=== PATIENT | male | born 2000 | race Caucasian/White ===

== ENCOUNTER 2019-10-15 11:23 | Emergency (ER) | payer BC ==
--- NOTE | 2019-10-15 11:32 | ER Document Report ---
HPI - HPI Patient complains to provider of: left foot pain Time Seen by Provider: 10/15/19 11:27 Onset: Other Onset/Duration: Persistent Quality of pain: Achy Context: 19-year-old male presents emergency department with complaints of left foot pain. Reports he was walking down the steps on [address] when he tripped and hyper flexed his foot. He reports he has been walking on it since that time. 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 He reports pain and swelling. Denies past medical history of injury to the foot. No other complaints such as fever vomiting diarrhea. Associated Symptoms: None Exacerbated by: Walking Relieved by: Denies Similar symptoms previously: No Recently seen / treated by doctor: No Past Medical History - General Information source: Patient - Social History Smoking Status: Unknown if Ever Smoked Occupation: [employer] Family History: None Patient has suicidal ideation: No Patient has homicidal ideation: No - Medical History Medical History: Negative Surgical Hx: Negative Vertical Provider Document - CONSTITUTIONAL Agree With Documented VS: Yes Exam Limitations: No Limitations General Appearance: WD/WN, No Apparent Distress - HEENT HEENT: Atraumatic, Normocephalic - NECK Neck: Supple - RESPIRATORY Respiratory: No Respiratory Distress - MUSCULOSKELETAL/EXTREMETIES Musculoskeletal/Extremeties: MAEW, FROM, Tender - Left foot digits tender to touch with ecchymosis dorsally slight swelling good pedal pulse cap refill less than 2 seconds - NEURO Level of Consciousness: Awake, Alert, Appropriate Motor/Sensory: No Motor Deficit - DERM Integumentary: Warm, Dry Course - Re-evaluation Re-evalutation: 10/15/19 12:14 Fracture of the proximal fifth metatarsal minimally displaced noted per x-ray. Patient was instructed on this instructed on splint crutches importance of follow-up with orthopedic. He verbalized understanding to all instructions. Foot X-Ray 10/15/19 11:30 IMPRESSION: Minimally displaced tuberosity fracture of the proximal 5th metatarsal. - Diagnostic Test Radiology reviewed: Image reviewed, Reports reviewed Procedures - Immobilization Left Foot Pre-Proc Neuro Vasc Exam: Normal Immobilizer type: Posterior ankle Performed by: PCT Post-Proc Neuro Vasc Exam: Unchanged from pre-exam Alignment checked and good: Yes Discharge - Discharge Clinical Impression: Left foot pain Condition: Stable Disposition: HOME, SELF-CARE Instructions: Use of Crutches ([facility]), Foot Fracture ([facility]), Ibuprofen (General) ([facility]), Ice & Elevation ([facility]), Splint Precautions ([facility]) Additional Instructions: *You have been evaluated for foot injury, fracture of the fifth metatarsal *Maintain the splint, use your crutches *Rest/Ice/Elevate *Follow up with orthopedics within 1 week *Take medication as prescribed *Return to ED for worsening condition, changes, needs Monitor your blood pressure. Your blood pressure was elevated today. This may be because you were anxious, in pain or because you need medication. It is important to follow up with your primary care provider for full evaluation. Prescriptions: Ibuprofen [Motrin 800 mg Tablet] 800 mg PO TID #15 tablet Forms: Elevated Blood Pressure, Return to Work Referrals: RENZO HEWITT JR, DO [ACTIVE PROVISIONAL STAFF] - Follow up as needed PREMA RODRIGUEZ MD [ACTIVE PROVISIONAL STAFF] - Follow up as needed [facility] [Provider Group] - Follow up as needed
--- NOTE | 2019-10-15 12:12 | RADIOLOGY REPORT (SQ) ---
EXAM DESCRIPTION: FOOT LEFT COMPLETE COMPLETED DATE/TIME: 10/15/2019 11:54 am REASON FOR STUDY: pain injury COMPARISON: None. EXAM PARAMETERS: NUMBER OF VIEWS: Three views. TECHNIQUE: AP, lateral and oblique radiographic images acquired of the left foot. LIMITATIONS: None. FINDINGS: MINERALIZATION: Normal. BONES: Minimally displaced tuberosity fracture of the proximal 5th metatarsal. JOINTS: No effusion. SOFT TISSUES: Lateral soft tissue swelling. No radiopaque foreign body. OTHER: No other significant finding. IMPRESSION: Minimally displaced tuberosity fracture of the proximal 5th metatarsal. TECHNICAL DOCUMENTATION: JOB ID: [id number] [id number] 2010 [employer]- All Rights Reserved Reading location - IP/workstation name: [email or web address]
[2019-10-15 13:24] VITALS: BP 138/81
== END 2019-10-15 13:35 | disposition home or self-care (01) ==
LOC: ER 11:23
DX: M79.672 Pain in left foot (principal); W18.40XA Slipping, tripping and stumbling without falling, unspecified, initial encounter
CPT/HCPCS: 99283

== ENCOUNTER 2020-10-31 23:50 | Emergency (ER) | payer SELFPAY ==
[2020-11-01] MEDS ORDERED: ACETAMINOPHEN 325 MG TABLET PO ONE (00:34)
[2020-11-01] MEDS ORDERED: DIPH/PERTUSS(ACELL)/TETANUS VAC/PF 0.5 ML SYR (>=10YO) IM ONE (00:35)
[2020-11-01] MEDS ORDERED: LIDOCAINE 1%/EPINEPHRINE INJ 20 ML VIAL INJ ONE (00:35)
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
--- NOTE | 2020-11-01 04:08 | RADIOLOGY REPORT (SQ) ---
CT cervical spine without contrast on 11/01/2020 at 2:45 AM CLINICAL INDICATION: Trauma, per protocol for mechanism of injury TECHNIQUE: Multiple axial images are obtained throughout the cervical spine without the administration of contrast. Sagittal and coronal reformatted images are also performed and reviewed. This exam was performed according to our departmental dose-optimization program, which includes automated exposure control, adjustment of the mA and/or kV according to patient size and/or use of iterative reconstruction technique. Total DLP is 499.75 mGy*cm. COMPARISON: None FINDINGS: Reformatted images reveal normal alignment of the cervical spine. There are no acute fractures. No definite disc herniation is noted. There is no prevertebral soft tissue swelling. IMPRESSION: No acute fracture or malalignment of the cervical spine.
--- NOTE | 2020-11-01 04:09 | RADIOLOGY REPORT (SQ) ---
CT head without contrast on 11/01/2020 at 2:43 AM CLINICAL INDICATION: Trauma, per protocol for mechanism of injury TECHNIQUE: Multiple axial images are obtained throughout the head without the administration of contrast. This exam was performed according to our departmental dose-optimization program, which includes automated exposure control, adjustment of the mA and/or kV according to patient size and/or use of iterative reconstruction technique. Total DLP is 1070.38 mGy*cm. COMPARISON: None FINDINGS: There is no hydrocephalus. There is no CT evidence of acute infarct. There is no hemorrhage. There are no abnormal extra-axial fluid collections. There is no mass, mass effect or midline shift. No bony abnormality is noted. IMPRESSION: No acute intracranial abnormality.
--- NOTE | 2020-11-01 04:11 | RADIOLOGY REPORT (SQ) ---
CT face and sinuses without contrast on 11/01/2020 at 2:48 AM CLINICAL INDICATION: Trauma, per protocol for mechanism of injury TECHNIQUE: Multiple axial images are obtained throughout the face/sinuses without the administration of contrast. Sagittal and coronal reformatted images are also performed and reviewed. This exam was performed according to our departmental dose-optimization program, which includes automated exposure control, adjustment of the mA and/or kV according to patient size and/or use of iterative reconstruction technique. Total DLP is 604.14 mGy*cm. COMPARISON: None FINDINGS: The paranasal sinuses are clear. There is nasal septal deviation to the left. Reformatted images reveal normal appearance of the orbital floors and orbital roofs. The bilateral TMJs are well located. There are no acute fracture lines. No other bony or soft tissue abnormality is noted. IMPRESSION: No acute facial fracture.
[2020-11-01 05:20] VITALS: BP 134/61
== END 2020-11-01 05:20 | disposition home or self-care (01) ==
LOC: ER 23:50
DX: S01.81XA Laceration without foreign body of other part of head, initial encounter (principal); R51.9 Headache, unspecified; Y04.2XXA Assault by strike against or bumped into by another person, initial encounter; F17.200 Nicotine dependence, unspecified, uncomplicated; F12.10 Cannabis abuse, uncomplicated; Z23 Encounter for immunization
CPT/HCPCS: 99284; 90471; 70450; 70486; 72125; 90715; 12013; J3490